=== PATIENT | female | born 1995 | race Caucasian/White ===

== ENCOUNTER 2022-10-06 08:43 | Emergency (ER) | payer BC ==
[~2022-10-06] VITALS: Ht 154.9 cm; Wt 122.0 kg
[2022-10-06 08:55] VITALS: BP 150/96
--- NOTE | 2022-10-06 10:34 | NUR ---
Covid and Flu swabs dropped off at lab.
[2022-10-06] MEDS ORDERED: LIDO15SO PO (10:37)
[2022-10-06] MEDS ORDERED: PROM118S5 PO (10:37)
[2022-10-06] MEDS ORDERED: ALBU0.0912 IH (10:37)
[2022-10-06] MEDS ORDERED: SUD30 PO (10:37)
[2022-10-06 10:45] VITALS: BP 150/96
== END 2022-10-06 10:45 | disposition home or self-care (01) ==
LOC: MED 08:43
DX: J06.9 Acute upper respiratory infection, unspecified (principal); Z20.822 Contact with and (suspected) exposure to COVID-19; B97.89 Other viral agents as the cause of diseases classified elsewhere; R50.9 Fever, unspecified; R05.9 Cough, unspecified; J45.909 Unspecified asthma, uncomplicated
CPT/HCPCS: 99283